=== PATIENT | female | born 1995 | race Caucasian/White ===

== ENCOUNTER 2021-10-20 15:56 | Emergency (ER) | payer OTHER ==
[2021-10-20 16:29] LABS: HEMOGLOBIN 13.4 gm/dl (12.3-15.3); RED BLOOD COUNT 4.16 M/UL (4.00-5.10); WHITE BLOOD COUNT 8.2 K/UL (4.5-11.0)
[2021-10-20 16:49] LABS: BUN/CREATININE RATIO 14 (0-10)
[2021-10-20] MEDS ORDERED: BENTYL 20MG TAB20 MG PO (17:49)
[2021-10-20] MEDS ORDERED: ZOFRAN 4 MG TAB4 MG PO (17:49)
== END 2021-10-20 18:08 | disposition home or self-care (01) ==
LOC: ER1 15:56
PROVIDERS: Emergency Medicine
DX: R10.11 Right upper quadrant pain (principal); R11.2 Nausea with vomiting, unspecified; F17.290 Nicotine dependence, other tobacco product, uncomplicated
CPT/HCPCS: 76705; 80053; 81001; 83690; 84703; 85025; 99284

== ENCOUNTER 2021-12-12 19:31 | Emergency (ER) | payer OTHER ==
[~2021-12-12 19:31] MED LIST: BENTYL 20MG TAB20 MG PO; ZOFRAN 4 MG TAB4 MG PO
== END 2021-12-12 22:22 | disposition home or self-care (01) ==
LOC: ER1 19:31
DX: M25.562 Pain in left knee (principal); M25.552 Pain in left hip; F17.290 Nicotine dependence, other tobacco product, uncomplicated; V49.40XA Driver injured in collision with unspecified motor vehicles in traffic accident, initial encounter; Y92.410 Unspecified street and highway as the place of occurrence of the external cause
CPT/HCPCS: 73502; 73564; 99283